=== PATIENT | female | born 1980 | race Two or more races ===

== ENCOUNTER 2024-12-19 02:46 | Emergency (ER) | payer OTHER, SELFPAY ==
--- NOTE | ~2024-12-19 | CT_ITS ---
CLINICAL HISTORY: severe epigastric pain, tender CT abdomen and pelvis with contrast Comparison: None provided Findings: The lung bases are clear. The gallbladder and solid organs are within normal limits. There are renal parenchymal calculi with right renal cortical scarring. No bowel obstruction, pneumoperitoneum, or pneumatosis. Pelvic contents unremarkable. Normal appendix. No acute fracture. IMPRESSION: No acute findings. This document has been electronically signed by: Emile Charles MD on 12/19/2024 07:25:22
[2024-12-19 02:53] VITALS: BP 144/105; PULSE 75; RESP 20; TEMP 36.4; O2SAT 98; BMI 33.7
--- NOTE | 2024-12-19 03:00 | PC.NURSE ---
PT n/v since Sunday, last Bm Sunday, no one at home sick, denies fever. abd pain 01/04.
[2024-12-19 03:14] LABS: MANUAL DIFF FLAG NO
[2024-12-19 03:20] LABS: Hematocrit 41.9 % (37.0-47.0); Hemoglobin 14.4 g/dl (12.0-16.0); Imm Gran Abs Auto 0.04 X10*3/uL (0.00-0.03); Imm Gran Pct Auto 0.3 % (0.0-0.4); Lymphocytes Absolute Auto 3.1 X10*3/uL (1.2-4.9); Mean Corpuscular HGB Conc 34.4 g/dl (31.0-35.0); Mean Corpuscular Hemoglobin 28.3 pg (27.0-33.0); Mean Corpuscular Volume 82.3 fL (80.0-98.0); NRBC Abs Auto 0.000 X10*3/uL (0.0-0.012); NRBC Pct Auto 0.0 /100WBC (0.0-0.2); Platelet Count 403 X10*3/uL (160-400); Red Blood Count 5.09 X10*6/uL (4.20-5.50); White Blood Count 13.1 X10*3/uL (4.8-10.8)
[2024-12-19 03:32] LABS: Alanine Aminotransferase 10 U/L (0-31); Albumin Level 4.9 g/dL (3.5-5.0); Alkaline Phosphatase 106 U/L (39-117); Anion Gap 18 (12-20); Aspartate Amino Transferase 20 U/L (5-31); Blood Urea Nitrogen 10 mg/dL (9-16); Calcium 10.7 mg/dL (8.4-10.2); Carbon Dioxide 20 mmol/L (22-29); Chloride 107 mmol/L (96-108); Creatinine Clr Calc Pharmacy 98.3; Estimated Glomerular Filt Rate > 60; Lipase 13 U/L (8-78); Potassium 3.8 mmol/L (3.3-5.1); Sodium 141 mmol/L (135-145); Total Protein 8.7 g/dL (6.5-8.0)
--- NOTE | 2024-12-19 04:02 | ECG_ITS ---
Test Reason : ABDN PAIN Blood Pressure : */* mmHG Vent. Rate : 89 BPM Atrial Rate : 89 BPM P-R Int : 142 ms QRS Dur : 82 ms QT Int : 352 ms P-R-T Axes : 76 78 29 degrees QTcB Int : 428 ms Normal sinus rhythm with sinus arrhythmia Right atrial enlargement Minimal voltage criteria for LVH, may be normal variant ( Sokolow-Coleman ) Nonspecific ST abnormality Abnormal ECG No previous ECGs available Referred By: Nick Garduno Electronically Signed By: Kip Vicente
--- NOTE | 2024-12-19 04:03 | ED.ABDPAIN ---
HPI - Abdominal Pain General Chief Complaint: Abdominal Pain Stated Complaint: abd pain Time Seen by Provider: 12/19/24 04:00 History of Present Illness ED Provider: Nick Garduno MD HPI narrative: 44-year-old female with epigastric abdominal pain Related Data Previous Rx's ?Medication ?Instructions ?Recorded acetaminophen 500 mg tablet 1,000 mg (2 x 500 mg) PO Q6H PRN 12/19/24 (Tylenol Extra Strength) fever or pain #20 tabs famotidine 20 mg tablet (Pepcid) 20 mg PO DAILY 30 days #30 tabs 12/19/24 ondansetron 4 mg disintegrating 4 mg PO Q6-8H PRN nausea and 12/19/24 tablet vomiting #14 tabs Allergies Allergy/AdvReac Type Severity Reaction Status Date / Time No Known Allergies Allergy Verified 12/19/24 02:55 [facility] Social History Social History Substance Use Type: Marijuana Physical Exam ED Vital Signs: Vital Signs - 24 hr 12/19/24 02:53 12/19/24 05:24 12/19/24 07:07 Temperature 97.6 F 98.4 F 97.8 F Pulse Rate 75 80 75 Respiratory Rate 20 14 18 Blood Pressure 144/105 H 124/71 152/93 H Pulse Oximetry 98 96 98 Oxygen Delivery Method Room Air Room Air 12/19/24 07:08 12/19/24 10:06 12/19/24 10:36 Temperature 97.6 F 97.6 F Pulse Rate 77 77 Respiratory Rate 18 14 14 Blood Pressure 145/89 H 145/89 H Pulse Oximetry 96 96 Oxygen Delivery Method Room Air Room Air BMI result Body Mass Index 33.7 Course Course Course Narrative: 12/19/24 09:46 hours, Benigno Herzog MD I assumed care of this patient from my colleague, Dr. Nick Garduno at 07:00 hours. The patient is a 45-year-old female with no significant past medical history who presents emergency department for evaluation of epigastric pain, nausea and vomiting since 12/16/2024 (3 days). Patient states she had severe epigastric pain associated with nausea and vomiting to frequent to count. She states that her pain became severe prior therefore she came to the emergency department for evaluation. At the time my evaluation the patient is feeling significantly better. She had mild epigastric tenderness. Patient was treated with aspirin 325 mg orally, morphine 4 mg IV x2, Protonix 40 mg and Zofran 4 mg IV. My interpretation patient's laboratory evaluation is as follows: WBC elevated 13.1 CBC was otherwise unremarkable. CMP revealed a low bicarb of 20 otherwise was unremarkable. Lipase was normal. Quantitative beta-hCG was negative. Troponin was elevated at 19.9 with repeat 3 hour troponin being flat at 18.8 suggesting the patient did not have myocardial infarction or myocardial injury is the cause of her symptoms. EKG revealed no significant ST segment elevation depression. CT scan of the abdomen pelvis did not reveal any acute abnormalities. Given her presentation I suspect that she has a viral syndrome versus food poisoning and I did discuss this with the patient. Patient will be discharged home with prescriptions for Pepcid 20 mg once a day for 30 days, Tylenol 500 mg pills, 2 pills every 6 hours as needed for pain. I also tried Zofran 4 mg ODT every 6-8 hours as needed for nausea and vomiting. She was advised to stay on a SAJI diet for the next 24 hours. She was given printed and verbal instructions and discharged home. Medical Decision Making Lab Data 12/19/24 03:10 12/19/24 03:10 Labs: Lab Results 12/19/24 12/19/24 12/19/24 Range/Units 03:10 04:26 06:36 WBC 13.1 H (4.8-10.8) X10*3/uL RBC 5.09 (4.20-5.50) X10*6/uL Hgb 14.4 (12.0-16.0) g/dl Hct 41.9 (37.0-47.0) % MCV 82.3 (80.0-98.0) fL MCH 28.3 (27.0-33.0) pg MCHC 34.4 (31.0-35.0) g/dl RDW 14.1 (11.0-16.0) % Plt Count 403 H (160-400) X10*3/uL MPV 10.7 (9.4-12.3) fL Immature Gran % (Auto) 0.3 (0.0-0.4) % Neut % (Auto) 66.9 (45-73) % Lymph % (Auto) 23.9 (20-40) % [place] % (Auto) 7.6 (2-11) % Eos % (Auto) 0.2 (0-4) % Baso % (Auto) 1.1 (0-2) % Lymph # (Auto) 3.1 (1.2-4.9) X10*3/uL [place] # (Auto) 1.0 (0.1-1.2) X10*3/uL Eos # (Auto) 0.0 (0.0-0.4) X10*3/uL Baso # (Auto) 0.1 (0.0-0.2) X10*3/uL Abs Immat Gran (auto) 0.04 H (0.00-0.03) X10*3/uL Absolute Neuts (auto) 8.8 H (2.0-8.3) x10*3/uL Absolute Nucleated RBC 0.000 (0.0-0.012) X10*3/uL Nucleated RBC % (auto) 0.0 (0.0-0.2) /100WBC Sodium 141 (135-145) mmol/L Potassium 3.8 (3.3-5.1) mmol/L Chloride 107 (96-108) mmol/L Carbon Dioxide 20 L (22-29) mmol/L Anion Gap 18 (12-20) BUN 10 (9-16) mg/dL Creatinine 0.76 (0.5-1.4) mg/dL Estim Creat Clear Calc 98.3 Estimated GFR > 60 Random Glucose 114 (60-115) mg/dL Calcium 10.7 H (8.4-10.2) mg/dL Total Bilirubin 0.9 (0.0-1.0) mg/dL Direct Bilirubin 0.2 (0.0-0.5) mg/dL AST 20 (5-31) U/L ALT 10 (0-31) U/L Alkaline Phosphatase 106 (39-117) U/L Troponin I High Sens 19.9 H 18.8 H (<3.5-17.0) ng/L Total Protein 8.7 H (6.5-8.0) g/dL Albumin 4.9 (3.5-5.0) g/dL Lipase 13 (8-78) U/L Beta HCG, Quant < 2 mIU/mL Independent Interpretation I performed an independent interpretation of an: EKG Interpretation: My independent interpretation patient's 12 EKG done on December 19 2024 at 06:28 hours is as follows: Normal sinus rhythm rate of 79, normal VA interval, QRS duration QTC interval, no ST segment elevation, no ST segment depression, no significant T-wave abnormalities, no PACs, no PVC. Radiology Impression Discussion of test interpretation with radiology: I have reviewed the radiologist's reading. Radiologist Impression: CT abdomen and pelvis with contrast Comparison: None provided Findings: The lung bases are clear. The gallbladder and solid organs are within normal limits. There are renal parenchymal calculi with right renal cortical scarring. No bowel obstruction, pneumoperitoneum, or pneumatosis. Pelvic contents unremarkable. Normal appendix. No acute fracture. IMPRESSION: No acute findings. This document has been electronically signed by: Emile Charles MD on 12/19/2024 07:25:22 Medications Administered Discontinued Medications Generic Name Dose Route Start Last Admin Trade Name Freq PRN Reason Stop Dose Admin Aspirin 325 mg 12/19/24 05:41 12/19/24 05:49 Aspirin 325 Mg Tablet PO 12/19/24 05:42 325 mg ONCE ONE Administration Iohexol 100 ml 12/19/24 06:27 12/19/24 06:27 Iohexol 350 Mg/Ml 100 Ml Infus..Btl IV 12/19/24 06:28 85 ml ONCE ONE Administration Morphine Sulfate 4 mg 12/19/24 04:38 12/19/24 04:44 Morphine Sulfate 4 Mg/Ml Cartridge IVPUSH 12/19/24 04:39 4 mg ONCE ONE Administration Protocol Morphine Sulfate 4 mg 12/19/24 07:01 12/19/24 07:08 Morphine Sulfate 4 Mg/Ml Cartridge IVPUSH 12/19/24 07:02 4 mg ONCE ONE Administration Protocol Ondansetron HCl 4 mg 12/19/24 04:02 12/19/24 04:28 Ondansetron Hcl 4 Mg/2 Ml Vial IVPUSH 12/19/24 04:03 4 mg ONCE ONE Administration Pantoprazole Sodium 40 mg 12/19/24 04:02 12/19/24 04:28 Pantoprazole Sodium 40 Mg/10 Ml Vial IVPUSH 12/19/24 04:03 40 mg ONCE ONE Administration Discharge Plan Discharge Clinical Impression: Acute viral syndrome Abdominal pain Qualifiers: Abdominal location: epigastric Qualified Code(s): R10.13 - Epigastric pain Nausea & vomiting Qualifiers: Vomiting type: unspecified Qualified Code(s): R11.2 - Nausea with vomiting, unspecified Diarrhea Qualifiers: Diarrhea type: unspecified type Qualified Code(s): R19.7 - Diarrhea, unspecified Patient Disposition: Home, Self-Care Instructions: Viral Syndrome (ED) Additional Instructions: Your white blood cell count was elevated-this is a sign of infection and can sometimes be caused by a viral infection. Your troponin (a marker of heart damage) was elevated at 19. Normally troponin in his less than 17 in women. Your repeat troponin however was unchanged at 18.8. This is reassuring. If you had a heart attack or heart damage the troponin should have gone up in his usually greater than 100 if you had a heart attack. This has not related to your symptoms. Your symptoms and exam is consistent with either a viral infection or food poisoning. Both of these conditions resolved over time but sometimes you can be sick for up to week. Take Zofran ODT 4 mg pills, 1 pill dissolved in your mouth every 8 hours as needed for nausea and vomiting. Take Pepcid (famotidine) 20 mg pills, 1 pill once a day for 4 weeks. ?This medication reduces the amount of acid that your stomach produces and will help the inflammation in your stomach heal. Take ibuprofen 200 mg pills, 2 pills every 6 hours as needed for pain or fever. Take Tylenol (acetaminophen) 500 mg pills, 2 pills every 6 hours as needed for pain or fever. Follow-up with your doctor in 2 days. Please return to the emergency department if your symptoms get worse or if you develop any symptoms that are concerning to you. Prescriptions: New famotidine [Pepcid] 20 mg tablet 20 mg PO DAILY 30 Days Qty: 30 0RF acetaminophen [Tylenol Extra Strength] 500 mg tablet 1,000 mg PO Q6H PRN (Reason: fever or pain) Qty: 20 0RF ondansetron 4 mg tablet,disintegrating 4 mg PO Q6-8H PRN (Reason: nausea and vomiting) Qty: 14 0RF Interventions: ED Discharge Assessment Last Done: 12/19/24 10:36 Discharge Date/Time: 12/19/24 10:37 Print Language: Bahamian
--- NOTE | 2024-12-19 04:47 | PC.NURSE ---
pt medicated per MAR
[2024-12-19 04:52] LABS: Troponin-I High Sensitivity 19.9 ng/L (<3.5-17.0)
[2024-12-19 05:24] VITALS: BP 124/71; PULSE 80; RESP 14; TEMP 36.9; O2SAT 96
--- NOTE | 2024-12-19 05:51 | PC.NURSE ---
pt medicated per MAR
--- NOTE | 2024-12-19 06:26 | ECG_ITS ---
Test Reason : HIGH TROP Blood Pressure : */* mmHG Vent. Rate : 79 BPM Atrial Rate : 79 BPM P-R Int : 146 ms QRS Dur : 86 ms QT Int : 368 ms P-R-T Axes : 69 77 42 degrees QTcB Int : 421 ms Normal sinus rhythm Normal ECG When compared with ECG of 19-Dec-2024 04:12, No significant change was found Referred By: Nick Garduno Electronically Signed By: Kip Vicente
[2024-12-19] MEDS: iohexoL 350 MG/ML 100 ML INFUS..BTL IV (06:27)
[2024-12-19 07:03] LABS: Troponin-I High Sensitivity 18.8 ng/L (<3.5-17.0)
[2024-12-19 07:07] VITALS: BP 152/93; PULSE 75; RESP 18; TEMP 36.6; O2SAT 98
[2024-12-19 07:08] VITALS: RESP 18
--- NOTE | 2024-12-19 07:14 | PC.NURSE ---
pt is A+Ox4, a little anxious, cooperative. C/o 8/10 epigastric abdominal pain and acid reflux x 5 months. Pt just medicated with pain medications. Pt denies any CP or SOB, RR even and unlabored.
[2024-12-19 10:06] VITALS: BP 145/89; PULSE 77; RESP 14; TEMP 36.4; O2SAT 96
[2024-12-19 10:36] VITALS: BP 145/89; PULSE 77; RESP 14; TEMP 36.4; O2SAT 96
== END 2024-12-19 10:37 | disposition home or self-care (01) ==
PROVIDERS: Emergency Medicine; Emergency Provider Emergency Medicine Emergency Medical Services
DX: B34.9 Viral infection, unspecified (principal); R10.2 Pelvic and perineal pain; R10.13 Epigastric pain; R19.7 Diarrhea, unspecified; I49.8 Other specified cardiac arrhythmias
CPT/HCPCS: 36415; 74177; 80053; 82248; 83690; 84484; 84702; 85025; 93005; 96374; 96375; 96376; 99284; 99285; J2270; J2405; J2470; Q9967

== ENCOUNTER → 2024-12-19 04:02 | Outpatient (BNV) | payer OTHER, SELFPAY | PROVIDERS: Emergency Provider Emergency Medicine Emergency Medical Services; Visit Provider Internal Medicine Cardiovascular Disease | DX: I51.7 Cardiomegaly (principal); I49.9 Cardiac arrhythmia, unspecified; R79.89 Other specified abnormal findings of blood chemistry | CPT/HCPCS: 93010 ==

== ENCOUNTER → 2024-12-19 04:37 | Outpatient (BNV) | payer OTHER, SELFPAY | PROVIDERS: Emergency Provider Emergency Medicine Emergency Medical Services; Visit Provider Specialist | DX: R10.13 Epigastric pain (principal); R10.816 Epigastric abdominal tenderness | CPT/HCPCS: 74177 ==

== ENCOUNTER 2025-03-22 23:08 | Emergency (ER) | payer OTHER, SELFPAY ==
--- NOTE | ~2025-03-22 | CT_ITS ---
CLINICAL HISTORY: R Flank and Abd Pain; Pos CVAT CT abdomen and pelvis with contrast Comparison: CT/SR - CT ABDOMEN PELVIS W IV CON - 12/19/24 06:22 EDT Findings: No consolidation or effusion. Small calcified right hepatic granuloma is present. 4 mm right distal ureteral stone is present with mild right hydronephrosis and delayed right nephrogram. Several additional right renal stones are seen measuring up to 9 mm. Focal cortical scarring is seen in the right lower kidney. 1.1 cm simple left renal cyst is present. The gallbladder, pancreas, spleen, and bilateral adrenal glands appear within normal limits. There is no evidence of bowel obstruction. The appendix appears normal. There is no pneumoperitoneum. Small fat containing umbilical hernia is present. The urinary bladder is nondistended. There is no adenopathy. 3.2 cm and 2.7 cm left ovarian cysts are present. 4.0 cm subcutaneous cyst is seen in the lower back. Moderate to severe degenerative changes are seen at L5/S1. No acute osseous abnormality is identified. No aggressive lytic or blastic lesion is seen. IMPRESSION: 1. 4 mm obstructive right distal ureteral stone with mild right hydronephrosis. Several additional right renal stones are present measuring up to 9 mm. 2. Other findings as described. This document has been electronically signed by: Yinka Landrum on 03/23/2025 05:16:43
[2025-03-22 23:11] VITALS: BP 139/91; PULSE 83; RESP 16; TEMP 36.7; O2SAT 98; BMI 33.7
[2025-03-23 00:15] LABS: Hematocrit 40.9 % (37.0-47.0); Hemoglobin 13.3 g/dl (12.0-16.0); Mean Corpuscular HGB Conc 32.5 g/dl (31.0-35.0); Mean Corpuscular Hemoglobin 27.5 pg (27.0-33.0); Mean Corpuscular Volume 84.5 fL (80.0-98.0); NRBC Abs Auto 0.000 X10*3/uL (0.0-0.012); NRBC Pct Auto 0.0 /100WBC (0.0-0.2); Platelet Count 377 X10*3/uL (160-400); Red Blood Count 4.84 X10*6/uL (4.20-5.50)
[2025-03-23 00:25] LABS: WBC ABN SCTR FOR CBC 1
[2025-03-23 00:37] LABS: Alanine Aminotransferase 8 U/L (0-31); Albumin Level 4.3 g/dL (3.5-5.0); Alkaline Phosphatase 94 U/L (39-117); Anion Gap 10 (12-20); Aspartate Amino Transferase 17 U/L (5-31); Blood Urea Nitrogen 8 mg/dL (9-16); Calcium 9.4 mg/dL (8.4-10.2); Carbon Dioxide 22 mmol/L (22-29); Chloride 112 mmol/L (96-108); Creatinine Clr Calc Pharmacy 92.4; Estimated Glomerular Filt Rate > 60; Lipase 26 U/L (8-78); Magnesium 1.9 mg/dL (1.6-2.6); Potassium 3.6 mmol/L (3.3-5.1); Sodium 140 mmol/L (135-145); Total Protein 7.3 g/dL (6.5-8.0)
[2025-03-23 00:38] LABS: Atypical Lymphs Percent Manual 1 % (0-6); Band Neutrophils Percent 0 % (3-5); Basophils Percent Manual 1 % (0-2); Eosinophils Percent Manual 5 % (0-4); Lymphocytes Percent Manual 23 % (20-40); Monocytes Percent Manual 7 % (2-11); Neutrophils Percent Manual 63 % (45-73)
[2025-03-23 00:39] LABS: RBC Morphology NOTED
[2025-03-23 00:41] LABS: Microcytosis 2+ (15-30) /OIF
[2025-03-23 00:42] LABS: Toxic Vacuolation PRESENT
[2025-03-23 00:43] LABS: Atypical Lymph Absolute Manual 0.1 x10*3/uL; Basophils Abs Manual 0.1 X10*3/uL (0.0-0.2); Eosinophils Absolute Manual 0.6 X10*3/uL (0.0-0.4); Lymphocytes Absolute Manual 2.7 X10*3/uL (1.2-4.9); Monocytes Absolute Manual 0.8 X10*3/uL (0.1-1.2); Neutrophils Absolute Manual 7.5 X10*3/uL (2.0-8.3); White Blood Count 11.9 X10*3/uL (4.8-10.8)
[2025-03-23 01:30] VITALS: BP 126/74; PULSE 77; RESP 20; TEMP 37; O2SAT 98
--- NOTE | 2025-03-23 01:30 | PC.NURSE ---
PT from triage reporting 10/10 right sided lower back pain radiating to her RLQ described as sharp. Pain onset approx. 12 hours ago w/ secondary complaints of N/V denies diarrhea and reports a BM 8 hours ago. VSS.
--- NOTE | 2025-03-23 02:17 | ED_ITS ---
HPI - Back Pain/Injury General Chief Complaint: Back Pain/Injury Stated Complaint: Severe back pain, vomiting Time Seen by Provider: 03/23/25 02:14 Source: patient Mode of arrival: ambulatory Limitations: no limitations History of Present Illness ED Provider: Deniz HIGHTOWER HPI Narrative: The patient is a 45-year-old female with a history of kidney stones presenting to the ED for evaluation of right flank pain which began suddenly this morning without provocation, and radiates into the right abdomen. Patient reports associated nausea with multiple times of vomiting, describes pain as a sharp pain with pressure to move her bowels but unable to move her bowels. The patient reports this is different than her normal kidney stone presentation, however denies associated fever/chills, hematemesis, cough, chest pain, shortness of breath, recent sick contacts, or recent trauma. The patient denies associated hematuria or dysuria. The patient reports she attempted to take Tylenol without relief and presents to the ED for evaluation. Related Data Previous Rx's ?Medication ?Instructions ?Recorded acetaminophen 500 mg tablet 1,000 mg (2 x 500 mg) PO Q 6H PRN 12/19/24 (Tylenol Extra Strength) fever or pain #20 tabs famotidine 20 mg tablet (Pepcid) 20 mg PO DAILY 30 day s #30 tabs 12/19/24 ondansetron 4 mg disintegrating 4 mg PO Q6-8H PRN naus ea and 12/19/24 tablet vomiting #14 tabs tamsulosin 0.4 mg capsule (Flomax) 0.4 mg PO DAILY #10 caps 03/23/25 Allergies Allergy/AdvReac Type Severity Reaction Status Date / Time No Known Allergies Allergy Verified 03/22/25 23:14 Review of Systems 2 Review of Systems: Yes all other systems are reviewed and are negative PMFSH Social History Social History Smoked in Last 30 Days: No Use of substances other than those prescribed or required for medical reasons: No Substance Use Type: Marijuana Advance Directives: No Advance Directives Information Provided: No Do you have a plan to hurt others: No Plan Patient : No Physical Exam 2 Vital Signs: Vital Signs: Last Vital Signs Temp 98 F 03/23/25 03:01 Pulse 75 03/23/25 03:01 Resp 16 03/23/25 03:01 BP 176/76 H 03/23/25 03:01 Pulse Ox 97 03/23/25 03:01 O2 Del Method Room Air 03/23/25 03:01 BMI result Body Mass Index 33.7 CONSTITUTIONAL: The patient appears non-toxic, well nourished and in no acute distress. Vital signs as documented. HEAD: Atraumatic, normocephalic. EYES: EOMs grossly intact, pupils equal, conjunctiva clear, no exudate. ENT: Nares patent, no discharge. Airway patent, no audible stridor, visible mucosa is pink and moist without noted lesions. NECK: Trachea is midline, no obvious masses or gross abnormalities. CHEST: Symmetric movement, normal appearance. LUNGS: LS present and CTAB, no w/r/r. Non-labored work of breathing. CARDIAC: Regular Rhythm, S1/S2 appreciated, no murmurs, rubs or gallops. ABDOMEN: Abdomen soft x4 quadrants, positive tenderness to palpation of the upper and lower right quadrants, negative rebound, negative Rovsing's, no palpable masses or organomegaly. Positive CVAT on the right, negative on the left. : Deferred. EXTREMITIES: Normal tone, moves all extremities spontaneously without reported pain. No obvious acute injury or deformity noted. NEURO: Alert and oriented x3, CN II-XII appear grossly intact. Cerebellar Functioning grossly intact. No obvious sensory or motor deficits. Speech clear and appropriate. PSYCH: normal affect, appropriate eye contact, fluid speech, with appropriate response to questioning. No reported suicidality or homicidality. SKIN: Warm, dry, color appropriate, normal turgor. No rashes noted. Medications Administered Discontinued Medications Generic Name Dose Route Start Last Admin Trade Name Reillyq PRN Reason Stop Dose Admin Sodium Chloride 1,000 mls @ 999 mls/hr 03/23/25 02:30 03/23/25 04:18 Ns IV 03/23/25 03:30 Infused .Q1H1M ALEKSANDRA Infusion Iohexol 85 ml 03/23/25 03:15 03/23/25 03:15 Iohexol 350 Mg/Ml 100 Ml Infus..Btl IV 03/23/25 03:16 85 ml ONCE ONE Administration Ketorolac Tromethamine 15 mg 03/23/25 02:20 03/23/25 02:47 Ketorolac Tromethamine 15 Mg/Ml Vial IVPUSH 03/23/25 02:21 15 mg ONCE ONE Administration Ondansetron HCl 4 mg 03/22/25 23:17 03/22/25 23:28 Ondansetron Odt 4 Mg Tab.Rapdis TRANSLINGU 03/22/25 23:18 4 mg ONCE ONE Administration Ondansetron HCl 4 mg 03/23/25 02:20 03/23/25 02:47 Ondansetron Hcl 4 Mg/2 Ml Vial IVPUSH 03/23/25 02:21 4 mg ONCE ONE Administration Tamsulosin HCl 0.4 mg 03/23/25 05:29 03/23/25 05:41 Tamsulosin Hcl 0.4 Mg Capsule PO 03/23/25 05:30 0.4 mg ONCE ONE Administration Medical Decision Making Medical Decision Making MDM Narrative: 2:23 AM 03/23/2025 (Mere HIGHTOWER): The patient is a 45-year-old female with a history of kidney stones presenting to the ED for evaluation of right flank pain which began suddenly this morning without provocation, and radiates into the right abdomen. Patient reports associated nausea with multiple times of vomiting, describes pain as a sharp pain with pressure to move her bowels but unable to move her bowels. The patient reports this is different than her normal kidney stone presentation, however denies associated fever/chills, hematemesis, cough, chest pain, shortness of breath, recent sick contacts, or recent trauma. The patient denies associated hematuria or dysuria. The patient reports she attempted to take Tylenol without relief and presents to the ED for evaluation. In the ED the patient appears in obvious discomfort, unable to lie still on the bed. The patient has right-sided upper and lower quadrant tenderness, with the associated CVAT on the right, negative on the left. Laboratory evaluation is notable for mild leukocytosis of 11.9, no anemia, electrolyte abnormality, or ISIDRO. The patient's LFTs are unremarkable, lipase is normal. The patient's presentation is concerning for ureterolithiasis. We will treat the patient with IV fluid hydration, Toradol, Zofran, and obtain a CT abdomen and pelvis. Of note the patient is unable to provide a urine sample, patient reports history of tubal ligation, however we will we will add on quantitative hCG. 5:31 AM 03/23/2025 (Mere HIGHTOWER): The patient's pain improved dramatically following administration of Toradol. The patient's CT shows evidence of a 4 mm stone in the right distal ureter with mild right hydronephrosis. The patient has still not provided a urine sample, patient will be encouraged to provide a urine sample to ensure no evidence of infected stone in the setting of mild leukocytosis. Pending no evidence of UTI patient will be discharged with Flomax and pain control. If there is any evidence of infection the patient will be admitted for IV antibiotics and Urology consultation for infected stone. 6:07 AM 03/23/2025 (Mere HIGHTOWER): The patient's urinalysis is negative for infection. Patient will be discharged with supportive care, strainer, and Flomax. Admission/Observation Consideration of admission/observation: Escalation of care including admission/observation considered Lab Data MDM Lab Attestation statement: I reviewed the patient's lab results. 03/23/25 00:10 03/23/25 00:10 Labs: Lab Results 03/23/25 03/23/25 Range/Units 00:10 05:45 WBC 11.9 H (4.8-10.8) X10*3/uL RBC 4.84 (4.20-5.50) X10*6/uL Hgb 13.3 (12.0-16.0) g/dl Hct 40.9 (37.0-47.0) % MCV 84.5 (80.0-98.0) fL MCH 27.5 (27.0-33.0) pg MCHC 32.5 (31.0-35.0) g/dl RDW 15.6 (11.0-16.0) % Plt Count 377 (160-400) X10*3/uL MPV 10.6 (9.4-12.3) fL Immature Gran % (Auto) Cancelled Neut % (Auto) Cancelled Lymph % (Auto) Cancelled [place] % (Auto) Cancelled Eos % (Auto) Cancelled Baso % (Auto) Cancelled Lymph # (Auto) Cancelled [place] # (Auto) Cancelled Eos # (Auto) Cancelled Baso # (Auto) Cancelled Abs Immat Gran (auto) Cancelled Absolute Neuts (auto) Cancelled Absolute Nucleated RBC 0.000 (0.0-0.012) X10*3/uL Nucleated RBC % (auto) 0.0 (0.0-0.2) /100WBC Neutrophils % (Manual) 63 (45-73) % Band Neutrophils % 0 L (3-5) % Lymphocytes % (Manual) 23 (20-40) % Atypical Lymphs % (Man) 1 (0-6) % Monocytes % (Manual) 7 (2-11) % Eosinophils % (Manual) 5 H (0-4) % Basophils % (Manual) 1 (0-2) % Abs Neuts (Manual) 7.5 (2.0-8.3) X10*3/uL Lymphocytes # (Manual) 2.7 (1.2-4.9) X10*3/uL Atyp Lymphs # (Manual) 0.1 x10*3/uL Monocytes # (Manual) 0.8 (0.1-1.2) X10*3/uL Eosinophils # (Manual) 0.6 H (0.0-0.4) X10*3/uL Basophils # (Manual) 0.1 (0.0-0.2) X10*3/uL Toxic Vacuolation PRESENT Platelet Estimate SLIGHTLY INCREASED (NORMAL) Plt Morphology Comment NORMAL RBC Morphology NOTED Microcytosis 2+ (15-30) /OIF Sodium 140 (135-145) mmol/L Potassium 3.6 (3.3-5.1) mmol/L Chloride 112 H (96-108) mmol/L Carbon Dioxide 22 (22-29) mmol/L Anion Gap 10 L (12-20) BUN 8 L (9-16) mg/dL Creatinine 0.80 (0.5-1.4) mg/dL Estim Creat Clear Calc 92.4 Estimated GFR > 60 Random Glucose 106 (60-115) mg/dL Calcium 9.4 D (8.4-10.2) mg/dL Magnesium 1.9 (1.6-2.6) mg/dL Total Bilirubin 0.3 (0.0-1.0) mg/dL AST 17 (5-31) U/L ALT 8 (0-31) U/L Alkaline Phosphatase 94 (39-117) U/L Total Protein 7.3 (6.5-8.0) g/dL Albumin 4.3 (3.5-5.0) g/dL Lipase 26 (8-78) U/L Beta HCG, Quant < 2 mIU/mL Urine Color Yellow Urine Appearance Clear Urine pH 7.5 (5.0-9.0) Ur Specific [place] >= 1.030 H (1.005-1.025) Urine Protein Negative (Neg-Trace) mg/dL Urine Glucose (UA) Negative (Negative) mg/dL Urine Ketones Negative (Negative) mg/dL Urine Blood Negative (Negative) Urine Nitrite Negative (Negative) Ur Leukocyte Esterase Negative (Negative) Urine RBC 0-2 (0-2) /HPF Urine WBC 0-5 (0-5) /HPF Ur Squamous Epith Cells 0-2 (0-2) /HPF Urine Bacteria None Seen (None Seen) Hyaline Casts 0-2 (0-2) /LPF Radiology Impression Discussion of test interpretation with radiology: I have reviewed the radiologist's reading. Radiologist Impression: CT abdomen and pelvis with contrast Comparison: CT/SR - CT ABDOMEN PELVIS W IV CON - 12/19/24 06:22 EDT Findings: No consolidation or effusion. Small calcified right hepatic granuloma is present. 4 mm right distal ureteral stone is present with mild right hydronephrosis and delayed right nephrogram. Several additional right renal stones are seen measuring up to 9 mm. Focal cortical scarring is seen in the right lower kidney. 1.1 cm simple left renal cyst is present. The gallbladder, pancreas, spleen, and bilateral adrenal glands appear within normal limits. There is no evidence of bowel obstruction. The appendix appears normal. There is no pneumoperitoneum. Small fat containing umbilical hernia is present. The urinary bladder is nondistended. There is no adenopathy. 3.2 cm and 2.7 cm left ovarian cysts are present. 4.0 cm subcutaneous cyst is seen in the lower back. Moderate to severe degenerative changes are seen at L5/S1. No acute osseous abnormality is identified. No aggressive lytic or blastic lesion is seen. IMPRESSION: 1. 4 mm obstructive right distal ureteral stone with mild right hydronephrosis. Several additional right renal stones are present measuring up to 9 mm. 2. Other findings as described. This document has been electronically signed by: Yinka Landrum on 03/23/2025 05:16:43 External Record Review External record reviewed: Outpatient record and Prior outpatient labs Prescription Management I considered prescription management with: Pain Medication Discharge Plan Discharge Clinical Impression: Right ureteral stone Patient Disposition: Home, Self-Care Instructions: How to Strain Your Urine (ED), Ureteral Stones (ED) Additional Instructions: Thank you for choosing [facility]'s Emergency Department for your care today. Your CT today demonstrated that your pain was secondary to a 4 mm kidney stone in your right ureter. Thankfully your laboratory evaluation and urinalysis were otherwise unremarkable there is no indication for admission to the hospital or continued ED observation, it is safe to discharge you home. Please take Flomax as directed to help advanced the stone through your ureter and into the bladder. Once the stone inches of the bladder it should not cause you any additional pain. Please strain your urine until you see the stone pass. Once the stone has passed you can stop taking Flomax. You should take alternating (staggered) doses of ibuprofen 600mg and Tylenol 1000mg every 4 hours as needed for any additional pain. Please stay well hydrated and get plenty of rest. Please follow up with your primary care physician for re-evaluation, additional management of your symptoms, and continued preventative care. If you do not have a primary care physician, please call the [facility] at [phone] to establish a new primary care physician. While waiting to establish your new primary care physician, you can call our [facility] at [phone] for non-emergency needs. Please return to the emergency department if you develop a severe or sudden change in your symptoms, a fever over 100.4 that does not improve with Tylenol or Ibuprofen, recurrent vomiting, or any other new or worsening symptoms or concerns. Prescriptions: New tamsulosin [Flomax] 0.4 mg capsule 0.4 mg PO DAILY Qty: 10 0RF No Action famotidine [Pepcid] 20 mg tablet 20 mg PO DAILY 30 Days Qty: 30 0RF acetaminophen [Tylenol Extra Strength] 500 mg tablet 1,000 mg PO Q6H PRN (Reason: fever or pain) Qty: 20 0RF ondansetron 4 mg tablet,disintegrating 4 mg PO Q6-8H PRN (Reason: nausea and vomiting) Qty: 14 0RF Referrals: Elizabeth Hess MD [Primary Care Provider, Medical] Clinical Impression: Right ureteral stone Print Language: Mohawk
[2025-03-23 03:01] VITALS: BP 176/76; PULSE 75; RESP 16; TEMP 36.6; O2SAT 97
[2025-03-23] MEDS: iohexoL 350 MG/ML 100 ML INFUS..BTL 85 ML IV (03:15)
[2025-03-23 05:51] LABS: Appearance Urine Clear; Glucose Urine UA Negative (Negative); PH 7.5 (5.0-9.0); Specific Gravity - Urine >= 1.030 (1.005-1.025)
--- NOTE | 2025-03-23 05:51 | PC.NURSE ---
pt medicated per jul, pt explained how to catch urine in filter at this time
[2025-03-23 06:47] VITALS: BP 151/80; PULSE 67; RESP 16; TEMP 37.1; O2SAT 98
== END 2025-03-23 06:48 | disposition home or self-care (01) ==
PROVIDERS: Physician Assistant; Emergency Provider Emergency Medicine; PCP Internal Medicine
DX: N20.1 Calculus of ureter (principal); M54.50 Low back pain, unspecified; R11.2 Nausea with vomiting, unspecified; R10.11 Right upper quadrant pain; Z79.899 Other long term (current) drug therapy
CPT/HCPCS: 36415; 74177; 80053; 81001; 83690; 83735; 84702; 85007; 85027; 96361; 96374; 96375; 99285; J1885; J2405; Q9967

== ENCOUNTER → 2025-03-23 02:20 | Outpatient (BNV) | payer OTHER, SELFPAY | PROVIDERS: Emergency Provider Emergency Medicine; PCP Internal Medicine; Visit Provider Radiology Vascular & Interventional Radiology | DX: N13.2 Hydronephrosis with renal and ureteral calculous obstruction (principal) | CPT/HCPCS: 74177 ==

== ENCOUNTER 2025-03-27 07:19 | Observation (INO) | payer OTHER, SELFPAY ==
[2025-03-27] VITALS (17 sets, daily range): BP systolic 128–178; BP diastolic 60–103; PULSE 61–86; RESP 12–22; TEMP 36.1–36.9; O2SAT 94–99; BMI 33.7; BMI 33.8; BMI 36.2
--- NOTE | ~2025-03-27 | FL_ITS ---
EXAMINATION: FL GUIDANCE ONLY HISTORY: stent COMPARISON: Correlation is made with a CT of the abdomen and pelvis with contrast dated 03/23/2025. TECHNIQUE: Fluoroscopy time: 31 seconds. Cumulative Dose: 6.40 0 mGy. DAP: 261.02 uGym2 Images: 8. FINDINGS: Fluoroscopic spot films from a right retrograde ureterogram demonstrate a filling defect in the distal ureter consistent with the calculus noted on CT. The final images demonstrate placement of a nephroureteral stent. FL/FL guidance in OR IMPRESSION: Fluoroscopy during procedure. Please see procedure report for additional information. Electronically signed by: Walker Drew MD 03/30/2025 06:58 AM [facility]
--- NOTE | ~2025-03-27 | US_ITS ---
EXAMINATION: US KIDNEY RIGHT HISTORY: rule out worsening hydro TECHNIQUE: Real-time grayscale ultrasound imaging of the right kidney was performed and images were reviewed. COMPARISON: Correlation is made with a CT of the abdomen and pelvis with contrast dated 03/23/2025. FINDINGS: The right kidney measures 9.7 x 6.4 x 5.8 cm. Renal parenchymal echotexture and thickness are normal. There are no masses. There is a calcification at the lower pole measuring 9 x 12 x 10 mm. There is moderate hydronephrosis as seen on CT. US/US renal RT IMPRESSION: 1. Moderate right hydronephrosis as seen on CT. 2. 9 x 12 x 10 mm calcification at the lower pole of the right kidney. Electronically signed by: Walker Drew MD 03/27/2025 08:51 AM EDT
--- NOTE | 2025-03-27 07:47 | ED.ABDPAIN ---
HPI - Abdominal Pain General Chief Complaint: Abdominal Pain Stated Complaint: Back Pain No Injury Time Seen by Provider: 03/27/25 07:41 Source: patient, RN notes reviewed and old records reviewed Mode of arrival: ambulatory Limitations: no limitations History of Present Illness ED Provider: Keely Romero PA-C HPI narrative: 45-year-old female who appears uncomfortable presenting to the emergency department today for worsening back pain with nausea or vomiting. She was seen here 4 days ago on Sunday and has CT scan that showed a 4 mm obstructive right distal ureteral stone with mild right hydronephrosis. She also had several other renal stones measuring up to 9 mm without obstruction. She was discharged home with pain medicine and Flomax. She returns today saying the last 24 hours have been really severe for her with worsening back pain and worsening nausea or vomiting. She denies hematemesis. The pain is not well-controlled. No matter what position she goes and she feels like she can not get comfortable. She denies dysuria urgency but does have lot of bladder pressure. No fevers no chills no falls no trauma. Related Data Previous Rx's ?Medication ?Instructions ?Recorded oxybutynin chloride 5 mg tablet 5 mg PO BEDTIME #14 tabs 03/29/25 oxycodone 5 mg tablet 5 mg PO Q8H PRN pain 0 days #10 03/29/25 tabs phenazopyridine 200 mg tablet 200 mg PO TID 6 doses #6 tabs 03/29/25 (Pyridium) Allergies Allergy/AdvReac Type Severity Reaction Status Date / Time No Known Allergies Allergy Verified 03/27/25 07:34 Review of Systems Review of Systems Yes all other systems are reviewed and are negative [facility] Past Medical History Attestation statement: The following information was validated with the patient. Source: old records reviewed and nursing notes reviewed Medical History Hx of renal calculi Surgical History Hx of tubal ligation Social History Social History Household Members: Children Housing: House Do you presently have visiting nurse or other home services: No Alcohol intake: former Patient Tobacco Use Status: Never used Tobacco Substance Use Type: Marijuana service: No Physical Exam ED Exam Exam: General: Appears in no acute distress but appears uncomfortable moaning in pain, appears well nourished body habitus is obese, appears stated age. No septic or ill-appearing. Vitals reviewed normal, PMH/Social and Surgical hx reviewed including allergies and current medications. - reviewed for prior visits here and and red as it pertains to similar chief complaint. Head: Normocephalic, no obvious trauma or skin lesions noted. Eyes: EOMI ENMT: moist oral mucosa Neck: trachea midline Cardiovascular: peripheral perfusion normal, Regular heart rate regular rhythm Respiratory: no respiratory distress lungs clear to auscultation bilaterally Abdomen: Obese abdomen suprapubic tenderness right-sided CVA tenderness and right flank tenderness Extremities: warm and moving without difficulty Psych: Cooperative Neuro: Alert and oriented. Vital Signs: Vital Signs - 24 hr 03/27/25 07:31 03/27/25 08:00 03/27/25 09:21 Temperature 97.4 F Pulse Rate 84 72 Respiratory Rate 18 20 22 H Blood Pressure 178/103 H 158/88 H Pulse Oximetry 99 96 Oxygen Delivery Method Room Air Room Air 03/27/25 10:00 Temperature Pulse Rate 78 Respiratory Rate 18 Blood Pressure 150/80 H Pulse Oximetry 96 Oxygen Delivery Method Room Air BMI result Body Mass Index 33.7 Medical Decision Making Medical Decision Making MDM Narrative: 45-year-old female with past medical history significant for obesity and recent ureteral stone diagnosis. Patient arrives to the ED afebrile non tachycardic and no respiratory distress afebrile mildly hypertensive at 178/103 this is felt to be secondary to pain. Patient was just seen here this past Sunday diagnosed with ureteral stone with hydro nephrosis that was mild without infection. Ultimately was determined to discharge to home with outpatient neurology follow-up. Came back today for intractable pain and nausea and vomiting in the last 24 hours. Abdominal labs were ordered along with a UA and ultrasound. She was given IV fluids as well as IV pain medication Zofran. She has right-sided CVA tenderness but a soft nontender abdomen with exception to suprapubic tenderness. Sunday, CT scan showed: IMPRESSION: 1. 4 mm obstructive right distal ureteral stone with mild right hydronephrosis. Several additional right renal stones are present measuring up to 9 mm., UA was normal and no left shift on labs, was dispo to home. U/S today: IMPRESSION: 1. Moderate right hydronephrosis as seen on CT. 2. 9 x 12 x 10 mm calcification at the lower pole of the right kidney., UA shows infection. WBC 11.6 with shift. Pyelo now. Not septic. I ordered 1g ceftriaxone IV abx, will consult with Urology for advise for admit vs dispo. 1054: Consulted with Dr. Brown in regards to patient's presentation who recommended maintaining patient's NPO status as well as admitting to Medicine with plans to perform stent tonight. Hospitalist consult placed patient to be admitted to medicine. Differential Diagnosis Differential Diagnoses: The differential diagnosis associated with the presentation includes Admission/Observation Consideration of admission/observation: Escalation of care including admission/observation considered Consult Healthcare Provider Management of the patient was discussed with: Hospitalist and Seed [employer]er Lab Data MDM Lab Attestation statement: I reviewed the patient's lab results. 03/27/25 08:07 03/27/25 08:07 Labs: Lab Results 03/27/25 03/27/25 03/27/25 Range/Units 08:07 09:51 10:48 WBC 11.6 H (4.8-10.8) X10*3/uL RBC 4.75 (4.20-5.50) X10*6/uL Hgb 13.2 (12.0-16.0) g/dl Hct 39.8 (37.0-47.0) % MCV 83.8 (80.0-98.0) fL MCH 27.8 (27.0-33.0) pg MCHC 33.2 (31.0-35.0) g/dl RDW 15.4 (11.0-16.0) % Plt Count 364 (160-400) X10*3/uL MPV 10.7 (9.4-12.3) fL Immature Gran % (Auto) 0.3 (0.0-0.4) % Neut % (Auto) 75.2 H (45-73) % Lymph % (Auto) 15.3 L (20-40) % [place] % (Auto) 7.2 (2-11) % Eos % (Auto) 1.0 (0-4) % Baso % (Auto) 1.0 (0-2) % Lymph # (Auto) 1.8 (1.2-4.9) X10*3/uL [place] # (Auto) 0.8 (0.1-1.2) X10*3/uL Eos # (Auto) 0.1 (0.0-0.4) X10*3/uL Baso # (Auto) 0.1 (0.0-0.2) X10*3/uL Abs Immat Gran (auto) 0.04 H (0.00-0.03) X10*3/uL Absolute Neuts (auto) 8.7 H (2.0-8.3) x10*3/uL Absolute Nucleated RBC 0.000 (0.0-0.012) X10*3/uL Nucleated RBC % (auto) 0.0 (0.0-0.2) /100WBC Sodium 139 (135-145) mmol/L Potassium 3.9 (3.3-5.1) mmol/L Chloride 110 H (96-108) mmol/L Carbon Dioxide 22 (22-29) mmol/L Anion Gap 11 L (12-20) BUN 9 (9-16) mg/dL Creatinine 0.89 (0.5-1.4) mg/dL Estim Creat Clear Calc 83.0 Estimated GFR > 60 Random Glucose 103 (60-115) mg/dL Lactic Acid 0.8 (0.5-2.0) mmol/L Calcium 9.1 (8.4-10.2) mg/dL Total Bilirubin 0.6 (0.0-1.0) mg/dL AST 16 (5-31) U/L ALT < 6 (0-31) U/L Alkaline Phosphatase 100 (39-117) U/L Total Protein 7.3 (6.5-8.0) g/dL Albumin 4.1 (3.5-5.0) g/dL Lipase 13 (8-78) U/L Urine Color Red A Urine Appearance Cloudy Urine pH 7.5 (5.0-9.0) Ur Specific [place] 1.015 (1.005-1.025) Urine Protein 100 (2+) H (Neg-Trace) mg/dL Urine Glucose (UA) Negative (Negative) mg/dL Urine Ketones Trace (Negative) mg/dL Urine Blood Large (3+) H (Negative) Urine Nitrite Negative (Negative) Ur Leukocyte Esterase Small (1+) H (Negative) Urine RBC >20 H (0-2) /HPF Urine WBC 11-20 H (0-5) /HPF Ur Squamous Epith Cells 0-2 (0-2) /HPF Urine Bacteria 2+ (None Seen) Hyaline Casts 0-2 (0-2) /LPF Urine Test NEGATIVE (NEGATIVE) Independent Interpretation I performed an independent interpretation of an: CT Scan Radiology Impression Discussion of test interpretation with radiology: I have reviewed the radiologist's reading. Tests considered The following testing was considered but not selected: Would have obtained repeat CT had patient's presentation been ML not kidney stone and if her repeat visit today was suggestive of other abdominal acute pathology. Chronic Conditions Patient?s care impacted by: Other Social Determinants Patient?s care significantly limited by Social Determinants of Health including: Other Social Determinant of Health Medications Administered Discontinued Medications Generic Name Dose Route Start Last Admin Trade Name Freq PRN Reason Stop Dose Admin Acetaminophen 650 mg 03/27/25 11:02 03/28/25 09:42 Acetaminophen 325 Mg Tablet PO 650 mg Q6H PRN Administration Pain, Mild 1-3,fever,headache Hydromorphone HCl 1 mg 03/27/25 08:57 03/27/25 09:21 Hydromorphone Hcl 1 Mg/Ml Syringe IVPUSH 03/27/25 08:58 1 mg ONCE ONE Administration Protocol Hydromorphone HCl 0.5 mg 03/27/25 11:18 03/29/25 07:45 Hydromorphone Hcl 0.5 Mg/0.5 Ml Syringe IVPUSH 0.5 mg Q4H PRN Administration Pain, Severe (Pain Scale 7-10) Protocol Sodium Chloride 1,000 mls @ 999 mls/hr 03/27/25 07:47 03/27/25 09:21 Ns IV 03/27/25 08:47 Infused .Q1H1M ONE Infusion Ceftriaxone Sodium 1 gm/ 50 mls @ 100 mls/hr 03/27/25 10:16 03/27/25 11:37 Sodium Chloride IV 03/27/25 10:45 Infused ONCE ONE Infusion Lactated Ringer's 1,000 mls @ 125 mls/hr 03/27/25 11:15 03/29/25 08:17 Lr IVCONT Infused .Q8H ALEKSANDRA Infusion Cefazolin Sodium/Dextrose 2 gm in 50 mls @ 100 mls/hr 03/27/25 15:47 03/27/25 16:28 Ancef IV 03/27/25 16:16 Infused PREOP ONE Infusion Ceftriaxone Sodium 1 gm/ 50 mls @ 100 mls/hr 03/28/25 10:00 03/28/25 12:13 Sodium Chloride IV Infused Q24H ALEKSANDRA Infusion Ketorolac Tromethamine 15 mg 03/27/25 11:18 03/27/25 12:50 Ketorolac Tromethamine 15 Mg/Ml Vial IVPUSH 15 mg Q6H PRN Administration Pain, Moderate(Pain Scale 4-6) Morphine Sulfate 2 mg 03/27/25 07:47 03/27/25 08:11 Morphine Sulfate 4 Mg/Ml Cartridge IVPUSH 03/27/25 07:48 2 mg ONCE ONE Administration Protocol Ondansetron HCl 4 mg 03/27/25 07:47 03/27/25 08:11 Ondansetron Hcl 4 Mg/2 Ml Vial IVPUSH 03/27/25 07:48 4 mg ONCE ONE Administration Ondansetron HCl 4 mg 03/27/25 11:02 03/28/25 17:40 Ondansetron Hcl 4 Mg/2 Ml Vial IVPUSH 4 mg Q8H PRN Administration Nausea and Vomiting Oxycodone HCl 5 mg 03/28/25 09:46 03/29/25 09:58 Oxycodone Hcl Immed Release 5 Mg Tablet PO 5 mg Q6H PRN Administration Pain, Moderate(Pain Scale 4-6) Sodium Chloride 3 ml 03/27/25 16:00 03/29/25 07:45 0.9 % Sodium Chloride Flush 3 Ml Syringe IVFLUSH 3 ml QSHIFT ALEKSANDRA Administration Critical Care Time Critical Care Time Critical Care Time: Yes Total Critical Care Time: 45 Attestation: ?45 minutes spent evaluating the patient, which may include speaking with prehospital personnel and family, interpreting studies, discussing the case with consultants or admitting teams, retrieving data and reviewing charts, documenting the visit, and performing bundled procedures independent of separately billed procedures.?? Discharge Plan Discharge Clinical Impression: Obstructive uropathy Patient Disposition: Admitted As Inpatient Interventions: Admission Worksheet (ED) Last Done: 03/27/25 13:54 Discharge Date/Time: 03/27/25 15:43
[2025-03-27 08:11] LABS: MANUAL DIFF FLAG NO
[2025-03-27 08:17] LABS: Hematocrit 39.8 % (37.0-47.0); Hemoglobin 13.2 g/dl (12.0-16.0); Imm Gran Abs Auto 0.04 X10*3/uL (0.00-0.03); Imm Gran Pct Auto 0.3 % (0.0-0.4); Lymphocytes Absolute Auto 1.8 X10*3/uL (1.2-4.9); Mean Corpuscular HGB Conc 33.2 g/dl (31.0-35.0); Mean Corpuscular Hemoglobin 27.8 pg (27.0-33.0); Mean Corpuscular Volume 83.8 fL (80.0-98.0); NRBC Abs Auto 0.000 X10*3/uL (0.0-0.012); NRBC Pct Auto 0.0 /100WBC (0.0-0.2); Platelet Count 364 X10*3/uL (160-400); Red Blood Count 4.75 X10*6/uL (4.20-5.50); White Blood Count 11.6 X10*3/uL (4.8-10.8)
[2025-03-27 08:35] LABS: Alanine Aminotransferase < 6 U/L (0-31); Albumin Level 4.1 g/dL (3.5-5.0); Alkaline Phosphatase 100 U/L (39-117); Anion Gap 11 (12-20); Aspartate Amino Transferase 16 U/L (5-31); Blood Urea Nitrogen 9 mg/dL (9-16); Calcium 9.1 mg/dL (8.4-10.2); Carbon Dioxide 22 mmol/L (22-29); Chloride 110 mmol/L (96-108); Creatinine Clr Calc Pharmacy 83.0; Estimated Glomerular Filt Rate > 60; Lipase 13 U/L (8-78); Potassium 3.9 mmol/L (3.3-5.1); Sodium 139 mmol/L (135-145); Total Protein 7.3 g/dL (6.5-8.0)
[2025-03-27 10:01] LABS: Appearance Urine Cloudy; Glucose Urine UA Negative (Negative); PH 7.5 (5.0-9.0); Specific Gravity - Urine 1.015 (1.005-1.025); UACC Culture Trigger YES; UMIC TRIGGER UACC YES
--- NOTE | 2025-03-27 11:04 | P.HPHOSP_ITS ---
History of Present Illness Date of Service: 03/27/25 Attending physician on admission: Dorothy Rodriguez Chief Complaint: flank pain This is a 45 year old female who presented to the ED with flank pain. She was initially seen in the ED on Friday 03/23 with right flank pain. She had a CT scan which showed obstructive right distal ureteral stone with mild right hydronephrosis. Her urinalysis was negative, she was discharged home with Flomax and a urine strainer. She has had persistent right flank pain with associated pressure with urination. She denies any fever or chills. She re-presented to the emergency department today due to ongoing pain. In addition she had multiple episodes of vomiting overnight. Today in the emergency department today her urinalysis was positive for acute infection, a renal ultrasound was obtained which showed moderate right hydronephrosis with a calcification at the lower pole of the right kidney. The case was discussed with Urology on-call who recommended admission for stent placement. Review of Systems 2 Review of Systems: Yes all other systems are reviewed and are negative Constitutional: Constitutional: Denies chills and Denies fever(s) Cardiovascular: Cardiovascular: Denies chest pain and Denies palpitations Gastrointestinal: Gastrointestinal: Reports abdominal pain, Denies diarrhea and Reports vomiting Endocrine: Endocrine: Denies palpitations PMFSH Social History Alcohol intake: former Smoked in Last 30 Days: No Use of substances other than those prescribed or required for medical reasons: Yes Substance Use Type: Marijuana Advance Directives: No Advance Directives Information Provided: No Do you have a plan to hurt others: No Plan Patient : No Meds Allergies Allergy/AdvReac Type Severity Reaction Status Date / Time No Known Allergies Allergy Verified 03/27/25 07:34 Physical Exam 2 Vital Signs and Narrative: Vital Signs: Last Vital Signs Temp 97.4 F 03/27/25 07:31 Pulse 78 03/27/25 10:00 Resp 18 03/27/25 10:00 BP 150/80 H 03/27/25 10:00 Pulse Ox 96 03/27/25 10:00 O2 Del Method Room Air 03/27/25 10:00 BMI result Body Mass Index 33.7 Const: Other: appears uncomfortable General: alert and awake Nutritional Appearance: overweight O rientation/consciousness: patient oriented x3 Resp: Effort & Inspection: normal respiratory effort, able to speak in complete sentences, no respiratory distress and no use of accessory muscles Cardio: Rate: regular rate GI: Inspection: No distended Palpation (GI): Soft to palpation : Other: Right CVAT Neuro: General: patient oriented x3, moves all extremities and CN's II-XI intact bilaterally Extrem: General: No pedal edema Results Labs 03/27/25 08:07 03/27/25 08:07 Labs: Laboratory Results - last 24 hr 03/27/25 03/27/25 08:07 09:51 MCV 83.8 MCH 27.8 MCHC 33.2 RDW 15.4 Plt Count 364 MPV 10.7 Immature Gran % (Auto) 0.3 Neut % (Auto) 75.2 H Lymph % (Auto) 15.3 L [place] % (Auto) 7.2 Eos % (Auto) 1.0 Baso % (Auto) 1.0 Lymph # (Auto) 1.8 [place] # (Auto) 0.8 Eos # (Auto) 0.1 Baso # (Auto) 0.1 Abs Immat Gran (auto) 0.04 H Absolute Neuts (auto) 8.7 H Absolute Nucleated RBC 0.000 Nucleated RBC % (auto) 0.0 Anion Gap 11 L Estim Creat Clear Calc 83.0 Estimated GFR > 60 Random Glucose 103 Calcium 9.1 Total Bilirubin 0.6 AST 16 ALT < 6 Alkaline Phosphatase 100 Total Protein 7.3 Albumin 4.1 Lipase 13 Urine Color Red A Urine Appearance Cloudy Urine pH 7.5 Ur Specific [place] 1.015 Urine Protein 100 (2+) H Urine Glucose (UA) Negative Urine Ketones Trace Urine Blood Large (3+) H Urine Nitrite Negative Ur Leukocyte Esterase Small (1+) H Urine RBC >20 H Urine WBC 11-20 H Ur Squamous Epith Cells 0-2 Urine Bacteria 2+ Hyaline Casts 0-2 Imaging Radiologist's Impressions: Impressions Renal Ultrasound 03/27/25 08:26 IMPRESSION: 1. Moderate right hydronephrosis as seen on CT. 2. 9 x 12 x 10 mm calcification at the lower pole of the right kidney. Electronically signed by: Walker Drew MD 03/27/2025 08:51 AM EDT Assessment and Plan (1) Obstructive uropathy: Status: Acute Plan This is a 45-year-old female with a history of mild intermittent asthma who presents to the emergency department with right-sided flank pain found to have infected kidney stone Obstructive uropathy due to infected kidney stone Has failed outpatient trial of conservative management with Flomax Imaging with moderate hydro and now with +UA received empiric antibiotics plan for stent placement urology consult follow urine/blood cultures mild intermittent asthma no acute exacerbation at this time DVT - early ambulation, mechanical devices Quality Stroke Does the patient have a stroke diagnosis?: No VTE Prior VTE?: No VTE Risk Level:: Medical - moderate - high VTE Device Contraindication: N/A - Device Ordered VTE Drug Contraindication: Treatment Not Indicated
--- NOTE | 2025-03-27 11:21 | PHA.MEDREC ---
Addendum entered by Lacie Chandler RPh 03/27/25 12:14: justa reviewed Original Note: Pharmacy Consult ? Medication Reconciliation Pharmacy has completed the medication reconciliation. Patient states she is only taking Tamsulosin 0.4 mg and she uses an Inhaler PRN , however she was in to much pain to remember the name. There is no claim history for any inhalers. Patient last had her medication yesterday.
[2025-03-27] MEDS: Lactated Ringers 1,000 ML 125 ML IVCONT ×2 (11:35→18:18)
--- NOTE | 2025-03-27 12:47 | P.CNUR_ITS ---
History of Present Illness Consult details Consult date: 03/27/25 Narrative: Coby is a 45-year-old female who appears uncomfortable presenting to the emergency department today for worsening back pain with nausea or vomiting. She was seen here 4 days ago on Sunday and has CT scan that showed a 4 mm obstructive right distal ureteral stone with mild right hydronephrosis. She also had several other renal stones measuring up to 9 mm without obstruction. She was discharged home with pain medicine and Flomax. She returns today saying the last 24 hours have been really severe for her with worsening back pain and worsening nausea or vomiting. Renal US- 03/27/25- right moderate hydronephrosis. Review of Systems 2 Review of Systems: Yes all other systems are reviewed and are negative Constitutional: Constitutional: Reports no additional constitutional complaints Eyes: Eyes: Reports no additional eye complaints ENT: Reports system reviewed and no additional complaints, except as documented Cardiovascular: Cardiovascular: Reports no additional cardiovascular complaints Respiratory: Respiratory: Reports no additional respiratory complaints Gastrointestinal: Gastrointestinal: Reports no additional gastrointestinal complaints Genitourinary: Genitourinary: Reports as per HPI Musculoskeletal: Musculoskeletal: Reports no additional musculoskeletal complaints Integumentary/Breasts: Skin/Breast: Reports system reviewed and no additional complaints, except as docu Neurologic: Reports system reviewed and no additional complaints, except as documented Psychiatric: Psychiatric: Reports no additional psychiatric complaints Endocrine: Endocrine: Reports no additional endocrine complaints Hematologic/Lymphatic: Hematologic/Lymphatic: Reports no additional hematologic/lymphatic complaints Allergic/Immunologic: Allergic/Immunologic: Reports no additional allergic/immunologic complaints PMFSH Past Medical History Medical History Hx of renal calculi Surgical History Surgical History Hx of tubal ligation Social History Social History Alcohol intake: former Smoked in Last 30 Days: No Use of substances other than those prescribed or required for medical reasons: Yes Substance Use Type: Marijuana Substance Use Frequency: Daily Are you DNR?: No Advance Directives: No Advance Directives Information Provided: No Do you have a plan to hurt others: No Plan Patient : No Meds Allergies Allergy/AdvReac Type Severity Reaction Status Date / Time No Known Allergies Allergy Verified 03/27/25 07:34 Active Medications: Current Medications Acetaminophen (Acetaminophen 325 Mg Tablet) 650 mg PO Q6H PRN PRN Reason: Pain, Mild 1-3,fever,headache Calcium Carbonate (Calcium Carbonate 750 Mg Tab.Chew) 750 mg PO Q4H PRN PRN Reason: Heartburn Hydromorphone HCl (Hydromorphone Hcl 0.5 Mg/0.5 Ml Syringe) 0.5 mg IVPUSH Q4H PRN; Protocol PRN Reason: Pain, Severe (Pain Scale 7-10) Last Admin: 03/27/25 11:37 Dose: 0.5 mg Lactated Ringer's (Lr) 1,000 mls @ 125 mls/hr IVCONT .Q8H ALEKSANDRA Last Admin: 03/27/25 11:35 Dose: 125 mls/hr Ketorolac Tromethamine (Ketorolac Tromethamine 15 Mg/Ml Vial) 15 mg IVPUSH Q6H PRN PRN Reason: Pain, Moderate(Pain Scale 4-6) Melatonin (Melatonin 3 Mg Tablet) 6 mg PO BEDTIME PRN PRN Reason: Insomnia Ondansetron HCl (Ondansetron Hcl 4 Mg/2 Ml Vial) 4 mg IVPUSH Q8H PRN PRN Reason: Nausea and Vomiting Polyethylene Glycol (Polyethylene Glycol 3350 17 Gm Powd.Pack) 17 gm PO DAILY PRN PRN Reason: Constipation Sodium Chloride (0.9 % Sodium Chloride Flush 3 Ml Syringe) 3 ml IVFLUSH QSHIFT [facility] Physical Exam 2 Vital Signs: Vital Signs: Last Vital Signs Temp 97.4 F 03/27/25 07:31 Pulse 78 03/27/25 10:00 Resp 18 03/27/25 10:00 BP 150/80 H 03/27/25 10:00 Pulse Ox 96 03/27/25 10:00 O2 Del Method Room Air 03/27/25 10:00 BMI result Body Mass Index 33.7 Const: General: cooperative, healthy appearing and no acute distress O rientation/consciousness: patient oriented x3 HEENT: Head: Yes normal to inspection, Yes normocephalic and Yes atraumatic Eyes: Conjunctivae: conjunctivae normal Neck: Neck: Yes normal visual inspection and Yes trachea midline Chest: Chest palpation & inspection: normal inspection of the chest Resp: Effort & Inspection: normal respiratory effort GI: Inspection: Yes normal to inspection Palpation (GI): Soft to palpation : General: Yes CVA tenderness (right) Back/Spine/Pelvis: Back: CVA tenderness (right) Neuro: General: patient oriented x3 Psych: Appearance: grossly normal Results Labs 03/27/25 08:07 03/27/25 08:07 Labs: Abnormal lab results 03/27/25 03/27/25 Range/Units 08:07 09:51 WBC 11.6 H (4.8-10.8) X10*3/uL Neut % (Auto) 75.2 H (45-73) % Lymph % (Auto) 15.3 L (20-40) % Abs Immat Gran (auto) 0.04 H (0.00-0.03) X10*3/uL Absolute Neuts (auto) 8.7 H (2.0-8.3) x10*3/uL Chloride 110 H (96-108) mmol/L Anion Gap 11 L (12-20) Urine Color Red A Urine Protein 100 (2+) H (Neg-Trace) mg/dL Urine Blood Large (3+) H (Negative) Ur Leukocyte Esterase Small (1+) H (Negative) Urine RBC >20 H (0-2) /HPF Urine WBC 11-20 H (0-5) /HPF Short CBC 03/27/25 Range/Units 08:07 WBC 11.6 H (4.8-10.8) X10*3/uL Hgb 13.2 (12.0-16.0) g/dl Hct 39.8 (37.0-47.0) % Plt Count 364 (160-400) X10*3/uL [facility] 03/27/25 08:07 Sodium 139 Potassium 3.9 Chloride 110 H Carbon Dioxide 22 BUN 9 Creatinine 0.89 Calcium 9.1 Liver Function 03/27/25 Range/Units 08:07 Total Bilirubin 0.6 (0.0-1.0) mg/dL AST 16 (5-31) U/L ALT < 6 (0-31) U/L Alkaline Phosphatase 100 (39-117) U/L Albumin 4.1 (3.5-5.0) g/dL Urine 03/27/25 Range/Units 09:51 Urine Color Red A Urine Appearance Cloudy Urine pH 7.5 (5.0-9.0) Ur Specific [place] 1.015 (1.005-1.025) Urine Protein 100 (2+) H (Neg-Trace) mg/dL Urine Glucose (UA) Negative (Negative) mg/dL Imaging Additional studies: Date of Service: 03/27/25 EXAMINATION: US KIDNEY RIGHT HISTORY: rule out worsening hydro TECHNIQUE: Real-time grayscale ultrasound imaging of the right kidney was performed and images were reviewed. COMPARISON: Correlation is made with a CT of the abdomen and pelvis with contrast dated 03/23/2025. FINDINGS: The right kidney measures 9.7 x 6.4 x 5.8 cm. Renal parenchymal echotexture and thickness are normal. There are no masses. There is a calcification at the lower pole measuring 9 x 12 x 10 mm. There is moderate hydronephrosis as seen on CT. IMPRESSION: 1. Moderate right hydronephrosis as seen on CT. 2. 9 x 12 x 10 mm calcification at the lower pole of the right kidney. Date of Service: 03/23/25 CLINICAL HISTORY: R Flank and Abd Pain; Pos CVAT CT abdomen and pelvis with contrast Comparison: CT/SR - CT ABDOMEN PELVIS W IV CON - 12/19/24 06:22 EDT Findings: No consolidation or effusion. Small calcified right hepatic granuloma is present. 4 mm right distal ureteral stone is present with mild right hydronephrosis and delayed right nephrogram. Several additional right renal stones are seen measuring up to 9 mm. Focal cortical scarring is seen in the right lower kidney. 1.1 cm simple left renal cyst is present. The gallbladder, pancreas, spleen, and bilateral adrenal glands appear within normal limits. There is no evidence of bowel obstruction. The appendix appears normal. There is no pneumoperitoneum. Small fat containing umbilical hernia is present. The urinary bladder is nondistended. There is no adenopathy. 3.2 cm and 2.7 cm left ovarian cysts are present. 4.0 cm subcutaneous cyst is seen in the lower back. Moderate to severe degenerative changes are seen at L5/S1. No acute osseous abnormality is identified. No aggressive lytic or blastic lesion is seen. IMPRESSION: 1. 4 mm obstructive right distal ureteral stone with mild right hydronephrosis. Several additional right renal stones are present measuring up to 9 mm. 2. Other findings as described. Assessment and Plan (1) Obstructive uropathy: Status: Acute (2) Right distal ureteral calculus: Status: Acute (3) Renal colic on right side: Status: Acute (4) Pyelonephritis of right kidney: Status: Acute Plan keep NPO right ureteral stent, ureteroscopy, laser Procedures Date of Service Date of Service: 03/27/25
[2025-03-27 15:02] LABS: UPreg QC Valid YES
--- NOTE | 2025-03-27 15:37 | P.CONAN_ITS ---
Documented by User: Ifrah Landin NP 03/27/25 12:32 HPI - Anesthesia Eval Consult details Narrative: 45 yr old female for right ?Cystoscopy,Ureteroscopy with Stent Placement PMFSH Active Problems Active Problems: All Active Problems Obstructive uropathy (Acute) Past Medical History Medical History (Updated 03/27/25 @ 15:27 by Emma Gonzalez RN) Hx of renal calculi Surgical History Surgical History (Updated 03/27/25 @ 15:27 by Emma Gonzalez RN) Hx of tubal ligation Social History Social History Alcohol intake: former Smoked in Last 30 Days: No Use of substances other than those prescribed or required for medical reasons: Yes Substance Use Type: Marijuana Substance Use Frequency: Daily Are you DNR?: No Advance Directives: No Advance Directives Information Provided: No Do you have a plan to hurt others: No Plan Patient : No Meds Allergies Allergy/AdvReac Type Severity Reaction Status Date / Time No Known Allergies Allergy Verified 03/27/25 07:34 Active Medications: Current Medications Acetaminophen (Acetaminophen 325 Mg Tablet) 650 mg PO Q6H PRN PRN Reason: Pain, Mild 1-3,fever,headache Calcium Carbonate (Calcium Carbonate 750 Mg Tab.Chew) 750 mg PO Q4H PRN PRN Reason: Heartburn Hydromorphone HCl (Hydromorphone Hcl 0.5 Mg/0.5 Ml Syringe) 0.5 mg IVPUSH Q4H PRN; Protocol PRN Reason: Pain, Severe (Pain Scale 7-10) Last Admin: 03/27/25 11:37 Dose: 0.5 mg Lactated Ringer's (Lr) 1,000 mls @ 125 mls/hr IVCONT .Q8H ALEKSANDRA Last Admin: 03/27/25 11:35 Dose: 125 mls/hr Ketorolac Tromethamine (Ketorolac Tromethamine 15 Mg/Ml Vial) 15 mg IVPUSH Q6H PRN PRN Reason: Pain, Moderate(Pain Scale 4-6) Melatonin (Melatonin 3 Mg Tablet) 6 mg PO BEDTIME PRN PRN Reason: Insomnia Ondansetron HCl (Ondansetron Hcl 4 Mg/2 Ml Vial) 4 mg IVPUSH Q8H PRN PRN Reason: Nausea and Vomiting Polyethylene Glycol (Polyethylene Glycol 3350 17 Gm Powd.Pack) 17 gm PO DAILY PRN PRN Reason: Constipation Sodium Chloride (0.9 % Sodium Chloride Flush 3 Ml Syringe) 3 ml IVFLUSH QSHIFT ALEKSANDRA Exam Height,Weight and Vital Signs: Height 5 ft 3 in Weight 86.183 kg Last Vital Signs Temp 97.4 F 03/27/25 07:31 Pulse 78 03/27/25 10:00 Resp 18 03/27/25 10:00 BP 150/80 H 03/27/25 10:00 Pulse Ox 96 03/27/25 10:00 O2 Del Method Room Air 03/27/25 10:00 Pertinent Lab Results Pertinent Lab Results: Laboratory Tests 03/27/25 03/27/25 03/27/25 08:07 09:51 10:48 WBC 11.6 H RBC 4.75 Hgb 13.2 Hct 39.8 MCV 83.8 MCH 27.8 MCHC 33.2 RDW 15.4 Plt Count 364 MPV 10.7 Immature Gran % (Auto) 0.3 Neut % (Auto) 75.2 H Lymph % (Auto) 15.3 L [place] % (Auto) 7.2 Eos % (Auto) 1.0 Baso % (Auto) 1.0 Lymph # (Auto) 1.8 [place] # (Auto) 0.8 Eos # (Auto) 0.1 Baso # (Auto) 0.1 Abs Immat Gran (auto) 0.04 H Absolute Neuts (auto) 8.7 H Absolute Nucleated RBC 0.000 Nucleated RBC % (auto) 0.0 Sodium 139 Potassium 3.9 Chloride 110 H Carbon Dioxide 22 Anion Gap 11 L BUN 9 Creatinine 0.89 Estim Creat Clear Calc 83.0 Estimated GFR > 60 Random Glucose 103 Lactic Acid 0.8 Calcium 9.1 Total Bilirubin 0.6 AST 16 ALT < 6 Alkaline Phosphatase 100 Total Protein 7.3 Albumin 4.1 Lipase 13 Urine Color Red A Urine Appearance Cloudy Urine pH 7.5 Ur Specific [place] 1.015 Urine Protein 100 (2+) H Urine Glucose (UA) Negative Urine Ketones Trace Urine Blood Large (3+) H Urine Nitrite Negative Ur Leukocyte Esterase Small (1+) H Urine RBC >20 H Urine WBC 11-20 H Ur Squamous Epith Cells 0-2 Urine Bacteria 2+ Hyaline Casts 0-2 Documented by User: Alicia Nguyễn DO 03/27/25 15:38 HPI - Anesthesia Eval Consult details Narrative: 45 yr old female for right ?Cystoscopy,Ureteroscopy with Stent Placement Smokes marijuana PMFSH Past Medical History Medical History (Updated 03/27/25 @ 15:27 by Emma Gonzalez, RN) Hx of renal calculi Family History Family history of problems with anesthesia: No Surgical History Surgical History (Updated 03/27/25 @ 15:27 by Emma Gonzalez RN) Hx of tubal ligation History of Problems with Anesthesia: No Social History Social History Alcohol intake: former Smoked in Last 30 Days: No Use of substances other than those prescribed or required for medical reasons: Yes Substance Use Type: Marijuana Substance Use Frequency: Daily Are you DNR?: No Advance Directives: No Advance Directives Information Provided: No Do you have a plan to hurt others: No Plan Patient : No Meds Allergies Allergy/AdvReac Type Severity Reaction Status Date / Time No Known Allergies Allergy Verified 03/27/25 07:34 Exam Exam Date and Time: 03/27/25 1535 Airway Mallampati Class: I TM Dist: >3cm Neck ROM: Full Loose/Missing/Broken Teeth: Yes (broken #9) Heart: S1S2 Lungs: CTAB Assessment and Plan Assessment Anesthesia Assessment: Anesthesia Plan Discussed and Chart Reviewed Final Anesthetic Review Family History of Problems with Anesthesia: No History of Problems with Anesthesia: No NPO: Yes ASA Class: II Final Preanesthetic Review: No Changes in Pt Med Stat, Meds/Allgs Chart Reviewed, Consent Obtained/Reviewed and Anes Risks/Benef Reviewed Patient Risk: Low Procedure Risk: Low Anesthetic Plan Anesthetic Plan: GA and Agree w/ Assess. and Plan Disposition: Standard PACU
--- NOTE | 2025-03-27 17:08 | W.PM.OPN ---
Operative Note Operative Note Date of Service: 03/27/25 Narrative: PreOperative Diagnosis:?? Right ureteral stone, right hydronephrosis Post Operative Diagnosis:?? right ureteral calculi/multiple, right hydronephrosis Procedure: - Cystoscopy, right retrograde, ureteroscopy laser lithotripsy stent insertion, 7 [place] by 24 cm Surgeon:?Dr Edson Savage Anesthesia:? General Procedure: After informed consent was verified the patient was brought to the operating placed on the OR table in supine position.? General Anesthesia was administered per protocol.? The patient was placed in lithotomy position, prepped and draped in the usual sterile fashion.? Safety pause time-out and side of surgery confirmed.? Antibiotics confirmed. 2% lidocaine jelly 10 mL was passed transurethrally. A 22 Citizen [place] cystoscope was inserted transurethrally, the bladder was visualized.? There were multiple tiny calculi on the bladder floor. Both ureteric orifices were in normal position. An open-ended ureteral catheter was passed into the right ureteral orifice and a retrograde examination was performed. There was a filling defect in the distal right ureter and dilatation of the proximal ureter. A guidewire was passed through the ureteral catheter into the kidney. The balloon dilator size 12 fr x 4 cm was passed over the guide-wire the balloon was inflated to 8 mmHg and the intramural ureter was dilated for 45seconds. The balloon was deflated and removed. After removing the balloon dilator a 2nd guidewire was then passed into the kidney to use as a safety. The cystoscope was removed, leaving both guidewires in place. One guidewire was used as the safety and was attached to the draping. The semi rigid ureteroscope was passed over one of the guidewires there were multiple small calculi noted in the ureter. One guidewire was then removed. 2 of the larger calculi were lasered. Laser lithotripsy of the stone was done using the 365 fiber with pulsating setting 0.8 J x 6 hz. There was good fragmentation of the stones. The 0 degree basket was passed through the ureteroscope, stone fragment(s) removed and sent for analysis. The ureteroscope was removed. The cystoscope was passed over the safety guidewire. A? 7 [place] by 24 cm stent was placed into the ureter and renal pelvis under a combination of fluoroscopy and direct visualization. The bladder was emptied.? The rigid cystoscope was removed. ? Darline larry IN placed. The patient tolerated the procedure well and was brought to the recovery room in stable condition. Complications: None Drains: Ureteral stent as dictated above
[2025-03-27] MEDS: 0.9 % Sodium Chloride Flush 3 ML SYRINGE IVFLUSH (22:00)
[2025-03-28] VITALS (9 sets, daily range): BP systolic 100–154; BP diastolic 54–79; PULSE 57–80; RESP 15–18; TEMP 36.5–37; O2SAT 94–98
[2025-03-28] MEDS: Lactated Ringers 1,000 ML 125 ML IVCONT ×3 (01:44→16:59)
--- NOTE | 2025-03-28 18:01 | HO.POSTANES ---
Post Anesthesia Evaluation Post Anesthesia Evaluation Date of Service: 03/28/25 Vital Signs: Vital Signs Temp Pulse Resp BP Pulse Ox O2 Del Method 03/28/25 15:03 98.5 F 70 18 131/69 98 Room Air 03/28/25 08:00 97.9 F 69 18 154/79 H 97 Room Air Anesthesia: General LMA Mental Status: Awake Pain Control: Satisfactory Nausea/Vomiting: None Hydration: Adequate Anesthesia-Related Issues: No Anes. Related Issues
--- NOTE | 2025-03-28 18:22 | P.PNIM_ITS ---
Subjective Subjective Date of Service: 03/28/25 Interval History: seen and examined this morning follow up for obstructive uropathy, uti s/p right stent placement having some hematuria this am Review of Systems Review of Systems: Yes all other systems are reviewed and are negative Constitutional Constitutional: Denies chills and Denies fever(s) Physical Exam 2 Vital Signs: Vital Signs: Last Vital Signs Temp 98.5 F 03/28/25 15:03 Pulse 70 03/28/25 15:03 Resp 18 03/28/25 15:03 BP 131/69 03/28/25 15:03 Pulse Ox 98 03/28/25 15:03 O2 Del Method Room Air 03/28/25 15:03 BMI result Body Mass Index 36.2 Const: General: alert and awake Nutritional Appearance: overweight O rientation/consciousness: patient oriented x3 Resp: Effort & Inspection: normal respiratory effort, able to speak in complete sentences, no respiratory distress and no use of accessory muscles Cardio: Rate: regular rate GI: Inspection: No distended Palpation (GI): Soft to palpation Neuro: General: patient oriented x3, moves all extremities and CN's II-XI intact bilaterally Extrem: General: No pedal edema Objective Data Active Medications Acetaminophen (Acetaminophen 325 Mg Tablet) 650 mg PO Q6H PRN PRN Reason: Pain, Mild 1-3,fever,headache Last Admin: 03/28/25 09:42 Dose: 650 mg Documented By: RUDI Calcium Carbonate (Calcium Carbonate 750 Mg Tab.Chew) 750 mg PO Q4H PRN PRN Reason: Heartburn Hydromorphone HCl (Hydromorphone Hcl 0.5 Mg/0.5 Ml Syringe) 0.5 mg IVPUSH Q4H PRN; Protocol PRN Reason: Pain, Severe (Pain Scale 7-10) Last Admin: 03/28/25 17:35 Dose: 0.5 mg Documented By: RUDI Lactated Ringer's (Lr) 1,000 mls @ 125 mls/hr IVCONT .Q8H [facility] Last Admin: 03/28/25 16:59 Dose: 125 mls/hr Documented By: RUDI Ceftriaxone Sodium 1 gm/ (Sodium Chloride) 50 mls @ 100 mls/hr IV Q24H [facility] Last Infusion: 03/28/25 12:13 Dose: Infused Documented By: RUDI Melatonin (Melatonin 3 Mg Tablet) 6 mg PO BEDTIME PRN PRN Reason: Insomnia Naloxone HCl (Naloxone Hcl 0.4 Mg/Ml Vial) 0.04 mg IVPUSH Q5M PRN PRN Reason: Excessive sedation or RR < 8 Ondansetron HCl (Ondansetron Hcl 4 Mg/2 Ml Vial) 4 mg IVPUSH Q8H PRN PRN Reason: Nausea and Vomiting Last Admin: 03/28/25 17:40 Dose: 4 mg Documented By: RUDI Oxycodone HCl (Oxycodone Hcl Immed Release 5 Mg Tablet) 5 mg PO Q6H PRN PRN Reason: Pain, Moderate(Pain Scale 4-6) Polyethylene Glycol (Polyethylene Glycol 3350 17 Gm Powd.Pack) 17 gm PO DAILY PRN PRN Reason: Constipation Sodium Chloride (0.9 % Sodium Chloride Flush 3 Ml Syringe) 3 ml IVFLUSH QSHIFT [facility] Last Admin: 03/28/25 16:59 Dose: Not Given Documented By: RUDI Non-Admin Reason: IV Running Labs 03/27/25 08:07 03/27/25 08:07 Microbiology Microbiology Results: Microbiology 03/27/25 10:48 Blood Culture - Preliminary Blood - Venous No growth after 24 hours. 03/27/25 10:48 Blood Culture - Preliminary Blood - Venous No growth after 24 hours. 03/27/25 10:48 Urine Culture - Final Urine clean catch - Clean Catch Midstream Assessment and Plan (1) Right distal ureteral calculus: Status: Acute (2) Renal colic on right side: Status: Acute Plan This is a 45-year-old female with a history of mild intermittent asthma who presents to the emergency department with right-sided flank pain found to have infected kidney stone Obstructive uropathy due to infected kidney stone Has failed outpatient trial of conservative management with Flomax Imaging with moderate hydro and now with +UA seen by urology, s/p right ureteroscopy laser lithotripsy and stent placement continue IV ceftriaxone follow urine/blood cultures mild intermittent asthma no acute exacerbation at this time DVT - early ambulation, mechanical devices Quality Stroke Does the patient have a stroke diagnosis?: No VTE Prior VTE?: No VTE Risk Level:: Medical - moderate - high VTE Device Contraindication: N/A - Device Ordered VTE Drug Contraindication: Treatment Not Indicated
[2025-03-28] MEDS: 0.9 % Sodium Chloride Flush 3 ML SYRINGE IVFLUSH (21:14)
[2025-03-28] MEDS: oxyCODONE HCl Immed Release 5 MG TABLET PO (21:15)
[2025-03-29] MEDS: Lactated Ringers 1,000 ML 125 ML IVCONT (00:24)
[2025-03-29 03:34] VITALS: BP 133/72; PULSE 69; RESP 16; TEMP 36.6; O2SAT 97
[2025-03-29 07:44] VITALS: BP 162/85; PULSE 62; RESP 16; TEMP 36.4; O2SAT 98
[2025-03-29] MEDS: 0.9 % Sodium Chloride Flush 3 ML SYRINGE IVFLUSH (07:45)
--- NOTE | 2025-03-29 07:46 | P.DS_ITS ---
DS: Providers Provider Date of Service: 03/29/25 Date of admission: 03/27/25 11:01 Date of discharge: 03/29/25 Primary care physician: Elizabeth Hess MD Consults: 03/27/25 11:02 Consult to Urology Routine Consulting Provider: [facility] [place] [facility] Reason for consultation: flank pain, infected stone Has provider been notified: Yes Attending physician on discharge: Milvia Stokes Discharging clinician: Fernanda Gore DS: Diagnosis Discharge Diagnosis (1) Right distal ureteral calculus: Status: Acute (2) Renal colic on right side: Status: Acute DS: Summary Hospital Course Hospital Course: From the H&P on the day of admission This is a 45 year old female who presented to the ED with flank pain. She was initially seen in the ED on Friday 03/23 with right flank pain. She had a CT scan which showed obstructive right distal ureteral stone with mild right hydronephrosis. Her urinalysis was negative, she was discharged home with Flomax and a urine strainer. She has had persistent right flank pain with associated pressure with urination. She denies any fever or chills. She re-presented to the emergency department today due to ongoing pain. In addition she had multiple episodes of vomiting overnight. Today in the emergency department today her urinalysis was positive for acute infection, a renal ultrasound was obtained which showed moderate right hydronephrosis with a calcification at the lower pole of the right kidney. The case was discussed with Urology on-call who recommended admission for stent placement Obstructive uropathy due to infected kidney stone Failed outpatient trial of conservative management with Flomax. Imaging with moderate hydro and repeat UA suggestive of infection. She was seen by urology, s/p right ureteroscopy laser lithotripsy and stent placement. She was treated with empiric ceftriaxone until urine cultures returned with no growth. Blood cultures are negative at 24 hours. No need for further antibiotics. Pain improving, has remained afebrile. Patient will be discharged home with plan for outpatient follow-up for stent removal in the office in 2 weeks Time Attestation Discharge Coordination Time (in mins): 32 Quality: Safe Use of Opioids Does Pt have an Active Cancer Diagnosis on the Problem List?: No Quality: Stroke Does the patient have a stroke diagnosis?: No Physical Exam Vital Signs: Vital Signs: Last Vital Signs Temp 97.5 F 03/29/25 07:44 Pulse 62 03/29/25 07:44 Resp 16 03/29/25 07:44 BP 162/85 H 03/29/25 07:44 Pulse Ox 98 03/29/25 07:44 O2 Del Method Room Air 03/29/25 07:44 BMI result Body Mass Index 36.2 Const: General: alert and awake Nutritional Appearance: overweight Orientation/consciousness: patient oriented x3 Resp: Effort & Inspection: normal respiratory effort, able to speak in complete sentences, no respiratory distress and no use of accessory muscles Cardio: Rate: regular rate GI: Inspection: No distended Palpation (GI): Soft to palpation Neuro: General: patient oriented x3, moves all extremities and CN's II-XI intact bilaterally Extrem: General: No pedal edema DS: Data Data Completed and Pending Pending studies at discharge: Pending at discharge 03/27/25 16:47 Surgical [PTH] Routine Labs on day of discharge: Preliminary micro results at discharge 03/27/25 10:48 Blood Culture - Preliminary Blood - Venous No growth after 24 hours. 03/27/25 10:48 Blood Culture - Preliminary Blood - Venous No growth after 24 hours. Discharge Plan Discharge Patient Disposition: Home, Self-Care Discharge Diagnosis: Renal colic, right distal ureteral calculi Referrals: Edson Savage MD [Physician, Urology] - 2 Weeks Referral Note: ureteral stent removal Elizabeth Hess MD [Primary Care Provider, Medical] - 1 Week Discharge Medications: New oxybutynin chloride 5 mg tablet 5 mg PO BEDTIME Qty: 14 0RF phenazopyridine [Pyridium] 200 mg tablet 200 mg PO TID Qty: 6 0RF Discontinued tamsulosin [Flomax] 0.4 mg capsule 0.4 mg PO DAILY Qty: 10 0RF Discharge Orders: Discharge Order (Routine); Ordered 03/29/25 Ordered By: Fernanda Gore Activity on Discharge: As tolerated Stand Alone Forms: Patient Portal Discharge page Print Language: Bengali Care Plan Goals: see below Health Concerns: right side kidney stone Plan of Treatment: No further antibiotics are necessary You may use Pyridium as needed for urinary discomfort (this may cause your urine to turn orange) You may use oxybutynin bedtime for bladder spasms blood in the urine is normal following stent placement. Flank pain, bladder pressure/pain should improve over the next few days stay hydrated Call to schedule follow-up appointment with Dr. Ott for stent removal in 2 weeks Call the urologist office or return to the ED if you develop fever, severe pain, inability to urinate Assessment: see discharge summary
[2025-03-29] MEDS: oxyCODONE HCl Immed Release 5 MG TABLET PO (09:58)
--- NOTE | 2025-03-29 16:41 | MHC.CM.PN ---
PT LIVES WITH HER CHILDREN AND IS INDEPENDENT WITH CARE SHE HAS NO DME OR SERVICES DECLINES HCP PCP: JEN MARK OBSERVATION NOTICE DELIVERED DCP: PT CLEARED TO DC HOME TODAY WITH NO SERVICES VIA PRIVATE TRANSPORT
== END 2025-03-29 10:30 | disposition home or self-care (01) ==
LOC: HO.ED 07:52 → HO.EDOVER 11:10 → HO.S3 14:08
PROVIDERS: Physician Assistant Medical; Urology; Admitting Provider Physician Assistant Medical; Emergency Provider Emergency Medicine; PCP Internal Medicine; Visit Provider Physician Assistant Medical
PROC: (CPT 52356; principal; 2025-03-27 17:00)
DX: N13.2 Hydronephrosis with renal and ureteral calculous obstruction (principal); N12 Tubulo-interstitial nephritis, not specified as acute or chronic; N23 Unspecified renal colic; R11.2 Nausea with vomiting, unspecified
CPT/HCPCS: 52356; 36415; 76775; 80053; 81001; 81003; 81025; 82365; 83605; 83690; 85025; 87040; 87086; 96361; 96365; 96366; 96375; 96376; 99221; 99285; C1726; C1758; C1769; C2617; J0690; J0696; J1171; J1885; J2003; J2270; J2405; J2704; J3010; J7120; Q9967

== ENCOUNTER → 2025-03-27 07:47 | Outpatient (BNV) | payer OTHER, SELFPAY | PROVIDERS: Emergency Provider Emergency Medicine; PCP Internal Medicine; Visit Provider Radiology Diagnostic Radiology | DX: N13.30 Unspecified hydronephrosis (principal); N28.89 Other specified disorders of kidney and ureter | CPT/HCPCS: 76775 ==

== ENCOUNTER → 2025-03-27 11:01 | Outpatient (BNV) | payer OTHER, SELFPAY | PROVIDERS: Admitting Provider Physician Assistant Medical; Emergency Provider Emergency Medicine; PCP Internal Medicine; Visit Provider Physician Assistant Medical | DX: N20.1 Calculus of ureter (principal); N23 Unspecified renal colic | CPT/HCPCS: 99232; 99239 ==

== ENCOUNTER → 2025-03-27 11:01 | Outpatient (BNV) | payer OTHER, SELFPAY | PROVIDERS: Admitting Provider Physician Assistant Medical; Emergency Provider Emergency Medicine; PCP Internal Medicine; Visit Provider Urology | DX: N13.2 Hydronephrosis with renal and ureteral calculous obstruction (principal); N12 Tubulo-interstitial nephritis, not specified as acute or chronic; N23 Unspecified renal colic | CPT/HCPCS: 52356; 74420; 99222 ==

== ENCOUNTER → 2025-04-09 13:12 | Outpatient (BNVA) | payer OTHER, SELFPAY | PROVIDERS: PCP Internal Medicine; Visit Provider Urology | DX: Z46.6 Encounter for fitting and adjustment of urinary device (principal); N13.2 Hydronephrosis with renal and ureteral calculous obstruction; N23 Unspecified renal colic | CPT/HCPCS: 52310; 81003 ==

== ENCOUNTER 2025-04-09 15:21 | Outpatient (AMB) | payer OTHER, SELFPAY ==
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
== END 2025-04-09 16:40 | disposition home or self-care (01) ==
PROVIDERS: PCP Internal Medicine; Visit Provider Urology
DX: N13.9 Obstructive and reflux uropathy, unspecified (principal); N23 Unspecified renal colic; N20.1 Calculus of ureter
CPT/HCPCS: 52310